=== PATIENT | male | born 1995 | race Caucasian/White ===

== ENCOUNTER 2016-11-24 19:03 | Emergency (ER) | payer OTHER ==
[2016-11-24] MEDS ORDERED: ONDANSETRON 4MG/2ML VIAL (J2405) As Ordered ONE (22:36)
[2016-11-24] MEDS ORDERED: PANTOPRAZOLE 40MG INJ (PROTONIX) (C9113) As Ordered ONE (22:36)
[2016-11-24 22:52] LABS: BASO % 0.4 % (0.0-1.0); EOS # 0.3 K/mm3 (0.0-0.50); EOS % 3.2 % (0.0-3.0); LARGE UNSTAINED CELL # 0.1 K/mm3 (0.0-0.4); LYMPH # 0.8 K/mm3 (1.5-6.5); LYMPH % 9.4 % (24.0-44.0); MEAN CORPUSCULAR HEMOGLOBIN 29.7 pg (27.0-33.0); MEAN CORPUSCULAR VOLUME 87.3 fl (80.0-96.0); MONO # 0.4 K/mm3 (0.0-0.8); MONO % 4.5 % (0.0-5.0); NEUTROPHILS # 6.7 K/mm3 (1.8-7.7); NEUTROPHILS % 81.5 % (36.0-66.0); PLATELET COUNT, AUTOMATED 149 k/mm3 (150-450); RED CELL DISTRIBUTION WIDTH 12.7 % (11.5-14.5); WHITE BLOOD COUNT 8.2 K/mm3 (4.0-10.0)
[2016-11-24 23:32] LABS: ALBUMIN 4.1 GM/DL (3.2-5.2); ALBUMIN/GLOBULIN RATIO 1.52 (1.00-1.93); ALKALINE PHOSPHATASE 68 U/L (45-117); ALT/SGPT 33 U/L (12-78); AMYLASE 43 U/L (25-115); ANION GAP 7 MEQ/L (8-16); AST/SGOT 27 U/L (15-37); BILIRUBIN,DIRECT 0.2 MG/DL (0.0-0.2); BILIRUBIN,TOTAL 0.9 MG/DL (0.2-1.0); BLOOD UREA NITROGEN 17 MG/DL (7-18); CALCIUM LEVEL 8.4 MG/DL (8.5-10.1); CARBON DIOXIDE LEVEL 29 MEQ/L (21-32); CHLORIDE LEVEL 105 MEQ/L (98-107); CREATININE FOR GFR 1.18 MG/DL (0.70-1.30); GLOMERULAR FILTRATION RATE > 60.0 (>60); GLUCOSE, FASTING 92 MG/DL (70-105); POTASSIUM SERUM 4.1 MEQ/L (3.5-5.1); SODIUM LEVEL 141 MEQ/L (136-145); TOTAL PROTEIN 6.8 GM/DL (6.4-8.2)
--- NOTE | 2016-11-25 00:28 | EDDOCDS ---
Nurse's Notes [facility] Name: Uli Mari Age: 21 yrs Sex: Male : 1995 Arrival Date: 11/24/2016 Time: 19:03 Bed I2 / M2 Private MD: Lucian - Complete Info On Cds Diagnosis: Nausea and vomiting;Diarrhea, unspecified Presentation: 11/24 19:18 Presenting complaint: Patient states: he has had N/V/D since 1500 today pt returned cz from [place] emergency department yesterday. Adult Sepsis Screening: The patient does not have new or worsening altered mentation. Patient's respiratory rate is less than 22. Systolic blood pressure is greater than 100. Patient has a qSOFA score of 0- Negative Sepsis Screen. Suicide/Homicide risk assessment- the patient denies having any suicidal and/or homicidal ideations and does not present with any other emotional, behavioral or mental health complaints. 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 Transition of care: patient was not received from another setting of care. 19:18 Acuity: NAEEM Level 4 cz 19:18 Method Of Arrival: Walkin/Carried/Asstd cz 22:32 Acuity level changed due to complexity of care. dsf 22:32 Acuity: NAEEM Level 3 dsf Triage Assessment: 19:20 General: Appears in no apparent distress. Pain: Location: abdomen Pain currently is 7 cz out of 10 on a pain scale. Pt Declines HIV testing. Historical: - Allergies: No known drug Allergies; - Home Meds: 1. none - PMHx: none; - PSHx: none; - Social history: Smoking status: Patient uses tobacco products, light tobacco smoker. No barriers to communication noted, The patient speaks fluent Maori, Speaks appropriately for age. - Family history: Not pertinent. - : The pt / caregiver states he / she is not on anticoagulants. Home medication list is obtained from the patient. - Exposure Risk Screening:: None identified. Screenin:29 Screening information is obtained from the patient. Fall risk: No risks identified. lf1 Assistance ADL's: requires no assistance with activities of daily living. Abuse/DV Screen: The patient / caregiver reports he/she is: not in a situation that causes fear, pain or injury. Nutritional screening: No deficits noted. Advance Directives: Currently, there is no health care proxy. home support is adequate. Assessment: 21:29 General: Appears comfortable, Behavior is cooperative. Pain: Denies pain. Neurological: lf1 Level of Consciousness is awake, alert, Oriented to person, place, time. EENT: No deficits noted. Cardiovascular: Chest pain is denied. Respiratory: Respiratory effort is even, unlabored. GI: Reports vomiting, intolerance of fluids. : Reports inability to void since 1500. Derm: Skin is normal. 22:43 General: Appears uncomfortable, Behavior is appropriate for age, cooperative. Pain: dsf Location: right upper quadrant and left upper quadrant Pain currently is 8 out of 10 on a pain scale. Quality of pain is described as sharp. Neurological: Level of Consciousness is awake, alert. Cardiovascular: Capillary refill < 3 seconds Heart tones S1 S2 present. Respiratory: Airway is patent Respiratory effort is even, unlabored, Respiratory pattern is regular, symmetrical, Breath sounds are clear bilaterally. GI: Abdomen is flat, Bowel sounds present X 4 quads. Abd is soft X 4 quads Abd is tender to palpation in right upper quadrant and left upper quadrant. Derm: Skin is pink, warm & dry. 23:30 General: Appears in no apparent distress, comfortable, Behavior is appropriate for age, dsf cooperative. Pain: Denies pain. Neurological: Level of Consciousness is awake, alert. Cardiovascular: No deficits noted. Respiratory: No deficits noted. Derm: Skin is pink, warm & dry. 11/25 00:25 General: pt drank 1 sip of sprite. pt denies vomiting but does report still nausea. dsf Misty PA notified . 00:27 General: Appears in no apparent distress, Behavior is appropriate for age, cooperative. dsf Pain: Denies pain. Neurological: Level of Consciousness is awake, alert. Cardiovascular: No deficits noted. Respiratory: No deficits noted. GI: Reports nausea, Denies vomiting, pain. Derm: Skin is pink, warm & dry. Vital Signs: 11/24 19:04 BP 108 / 72; Pulse 102; Resp 18 S; Temp 98.7(O); Pulse Ox 97% on R/A; Weight 86.18 kg gr2 (R); Height 5 ft. 8 in. (172.72 cm) (R); Pain 7/10; 23:29 BP 103 / 55; Pulse 68; Resp 20; Temp 98.7(T); Pulse Ox 100% on R/A; Pain 0/10; dsf 19:04 Body Mass Index 28.89 (86.18 kg, 172.72 cm) gr2 Vitals: 19:04 Log In Time: November 24, 2016 at 19:04. gr2 ED Course: 19:04 Patient visited by Bismark Robin. gr2 19:04 Other - Complete Info On Cds is Private Physician. gr2 19:04 Patient moved to Waiting gr2 19:05 Patient visited by Bismark Robin. gr2 19:05 Patient moved to Pre RCE gr2 19:20 Triage Initiated cz 21:27 Patient moved to Triage 1 ar3 22:03 [facility]C [facility] ck7 22:03 Ochoa Frye MD is Attending Physician. ck7 22:09 Patient visited by Corey Jay RPA-C. ck7 22:31 Patient moved to I2 / M2 mb9 22:43 Amylase Sent. dsf 22:43 Basic Metabolic Profile Sent. dsf 22:43 CBC with Diff Sent. dsf 22:43 Lipase Sent. dsf 22:43 Liver Profile Sent. dsf 22:44 Inserted saline lock: 18 gauge in right antecubital area The patient tolerated the dsf procedure well. 22:45 Patient visited by Marylu Moore,ONI. dsf 23:30 Patient visited by Marylu Moore,ONI. dsf 11/25 00:09 Patient visited by Corey Jay RPA-C. ck7 00:22 Victoriano Stone [facility] is Referral Physician. ck7 00:26 The patient / caregiver is instructed regarding the plan of care and ED course. dsf 00:26 No procedures done that require assistance. dsf 00:26 Discontinued lock intact, bleeding controlled, pressure dressing applied, No dsf redness/swelling at site. Administered Medications: 11/24 22:44 Drug: Ondansetron 4 mg [ondansetron HCl 2 mg/mL intravenous solution (2 mL)] Route: dsf IVP; Site: right antecubital; 23:59 Follow up: Response: Nausea is decreased; No Adverse Reaction ead 22:44 Drug: pantoprazole 40 mg [pantoprazole 40 mg intravenous solution] Route: IV; Rate: dsf bolus; Site: right antecubital; 23:15 Follow up: Response: Nausea is decreased; No Adverse Reaction; IV Status: Completed ead infusion 22:45 Drug: NS 0.9% 1000 ml [sodium chloride 0.9 % injection solution] Route: IV; Rate: dsf bolus; Site: right antecubital; 23:59 Follow up: IV Status: Completed infusion; IV Intake: 1000ml ead Intake: 23:59 IV: 1000.00ml; Total: 1000.00ml. ead Order Results: Lab Order: Amylase; SPEC'11/24/16 22:41 Test: AMYLASE; Value: 43; Range: 25-115; Units: U/L; Status: F Lab Order: Basic Metabolic Profile; SPEC11/24/16 22:41 Test: GLUCOSE, FASTING; Value: 92; Range: 70-105; Units: MG/DL; Status: F Test: BLOOD UREA NITROGEN; Value: 17; Range: 7-18; Units: MG/DL; Status: F Test: CREATININE FOR GFR; Value: 1.18; Range: 0.70-1.30; Units: MG/DL; Status: F Test: GLOMERULAR FILTRATION RATE; Value: > 60.0; Range: >60; Status: F Test: SODIUM LEVEL; Value: 141; Range: 136-145; Units: MEQ/L; Status: F Test: POTASSIUM SERUM; Value: 4.1; Range: 3.5-5.1; Units: MEQ/L; Status: F Test: CHLORIDE LEVEL; Value: 105; Range: 98-107; Units: MEQ/L; Status: F Test: CARBON DIOXIDE LEVEL; Value: 29; Range: 21-32; Units: MEQ/L; Status: F Test: ANION GAP; Value: 7; Range: 8-16; Abnormal: Below low normal; Units: MEQ/L; Status: F Test: CALCIUM LEVEL; Value: 8.4; Range: 8.5-10.1; Abnormal: Below low normal; Units: MG/DL; Status: F Test Note: ; Units are mL/min/1.73 m2 Chronic Kidney Disease Staging per NKF: Stage I & II GFR >=60 Normal to Mildly Decreased Stage III GFR 30-59 Moderately Decreased Stage IV GFR 15-29 Severely Decreased Stage V GFR <15 Very Little GFR Left ESRD GFR <15 on [facility] Lab Order: CBC with Diff; BLANCA'Kt 11/24/16 22:41 Test: WHITE BLOOD COUNT; Value: 8.2; Range: 4.0-10.0; Units: K/mm3; Status: F Test: RED BLOOD COUNT; Value: 5.58; Range: 4.30-6.10; Units: M/mm3; Status: F Test: HEMOGLOBIN; Value: 16.6; Range: 14.0-18.0; Units: g/dl; Status: F Test: HEMATOCRIT; Value: 48.8; Range: 42.0-52.0; Units: %; Status: F Test: MEAN CORPUSCULAR VOLUME; Value: 87.3; Range: 80.0-96.0; Units: fl; Status: F Test: MEAN CORPUSCULAR HEMOGLOBIN; Value: 29.7; Range: 27.0-33.0; Units: pg; Status: F Test: MEAN CORPUSCULAR HGB CONC; Value: 34.0; Range: 32.0-36.5; Units: g/dl; Status: F Test: RED CELL DISTRIBUTION WIDTH; Value: 12.7; Range: 11.5-14.5; Units: %; Status: F Test: PLATELET COUNT, AUTOMATED; Value: 149; Range: 150-450; Abnormal: Below low normal; Units: k/mm3; Status: F Test: NEUTROPHILS %; Value: 81.5; Range: 36.0-66.0; Abnormal: Above high normal; Units: %; Status: F Test: LYMPH %; Value: 9.4; Range: 24.0-44.0; Abnormal: Below low normal; Units: %; Status: F Test: MONO %; Value: 4.5; Range: 0.0-5.0; Units: %; Status: F Test: EOS %; Value: 3.2; Range: 0.0-3.0; Abnormal: Above high normal; Units: %; Status: F Test: BASO %; Value: 0.4; Range: 0.0-1.0; Units: %; Status: F Test: LARGE UNSTAINED CELL %; Value: 1.0; Range: 0.0-4.0; Units: %; Status: F Test: NEUTROPHILS #; Value: 6.7; Range: 1.8-7.7; Units: K/mm3; Status: F Test: LYMPH #; Value: 0.8; Range: 1.5-6.5; Abnormal: Below low normal; Units: K/mm3; Status: F Test: MONO #; Value: 0.4; Range: 0.0-0.8; Units: K/mm3; Status: F Test: EOS #; Value: 0.3; Range: 0.0-0.50; Units: K/mm3; Status: F Test: BASO #; Value: 0.0; Range: 0.0-0.2; Units: K/mm3; Status: F Test: LARGE UNSTAINED CELL #; Value: 0.1; Range: 0.0-0.4; Units: K/mm3; Status: F Lab Order: Lipase; SPEC' 11/24/16 22:41 Test: LIPASE; Value: 168; Range: 73-393; Units: U/L; Status: F Lab Order: Liver Profile; SPEC' 11/24/16 22:41 Test: AST/SGOT; Value: 27; Range: 15-37; Units: U/L; Status: F Test: ALT/SGPT; Value: 33; Range: 12-78; Units: U/L; Status: F Test: ALKALINE PHOSPHATASE; Value: 68; Range: 45-117; Units: U/L; Status: F Test: BILIRUBIN,TOTAL; Value: 0.9; Range: 0.2-1.0; Units: MG/DL; Status: F Test: BILIRUBIN,DIRECT; Value: 0.2; Range: 0.0-0.2; Units: MG/DL; Status: F Test: TOTAL PROTEIN; Value: 6.8; Range: 6.4-8.2; Units: GM/DL; Status: F Test: ALBUMIN; Value: 4.1; Range: 3.2-5.2; Units: GM/DL; Status: F Test: ALBUMIN/GLOBULIN RATIO; Value: 1.52; Range: 1.00-1.93; Status: F Outcome: 11/25 00:23 Discharge ordered by Provider. ck7 00:26 No special radiology studies were completed. dsf 00:26 Discharge Assessment: Patient awake, alert and oriented x 3. No cognitive and/or dsf functional deficits noted. Patient verbalized understanding of disposition instructions. patient administered narcotics - no. The following High Risk Discharge criteria are identified: None. Discharged to home ambulatory. Condition: stable. Discharge instructions given to patient, Instructed on discharge instructions, follow up and referral plans. diet, Demonstrated understanding of instructions, medications, Pt was receptive of discharge instructions/ teaching. Prescriptions given X 2. Property sent home with patient. 00:27 Patient left the ED. dsf Signatures: Paul Venegas, RN RN cz Mimi Bolivar,RN RN lf1 Dottie Campbell, TWITCHELL OPERATOR TWITCHELL OPERATOR ar3 Marylu MooreRN RN dsf Corey Jay, RPA-C RPA-Cck7 Bismark Robin Emily,RN RN Guillermo Wang,RN RN mb9 KUN
--- NOTE | 2016-11-25 00:28 | EDDOCDS ---
Physician Documentation [facility] Name: Uli Mari Age: 21 yrs Sex: Male : 1995 Arrival Date: 11/24/2016 Time: 19:03 Bed I2 / M2 Private MD: Lucian - Complete Info On Cds Disposition: 11/25/16 00:23 Discharged to Home/Self Care. Impression: Nausea and vomiting, Diarrhea, unspecified. - Condition is Stable. - Discharge Instructions: Diarrhea, Nausea and Vomiting. - Prescriptions for Prilosec 20 mg Oral Capsule - take 1 capsule by ORAL route once daily; 10 capsule. ZOFRAN ODT 4 mg - dissolve 1 tablet by ORAL route 4 times per day As needed do not chew, do not swallow whole; 10 tablet. - Medication Reconciliation, Local Pharmacy Hours form. - Follow up: Victoraino Stone [facility]; When: Tomorrow; Reason: Recheck today's complaints, Continuance of care. - Problem is new. - Symptoms have improved. - Notes: FOLLOW UP WITH SICK CALL IN THE MORNING Historical: - Allergies: No known drug Allergies; - Home Meds: 1. none - PMHx: none; - PSHx: none; - Social history: Smoking status: Patient uses tobacco products, light tobacco smoker. No barriers to communication noted, The patient speaks fluent Swedish, Speaks appropriately for age. - Family history: Not pertinent. - : The pt / caregiver states he / she is not on anticoagulants. Home medication list is obtained from the patient. - Exposure Risk Screening:: None identified. Vital Signs: 11/24 19:04 BP 108 / 72; Pulse 102; Resp 18 S; Temp 98.7(O); Pulse Ox 97% on R/A; Weight 86.18 kg / gr2 189.99 lbs (R); Height 5 ft. 8 in. (172.72 cm) (R); Pain 7/10; 23:29 BP 103 / 55; Pulse 68; Resp 20; Temp 98.7(T); Pulse Ox 100% on R/A; Pain 0/10; dsf 19:04 Body Mass Index 28.89 (86.18 kg, 172.72 cm) gr2 MDM: 22:32 Undress patient appropriately for examination ordered. ck7 22:32 IV Saline Lock ordered. ck7 22:32 NS 0.9% 1000 ml IV at bolus once ordered. ck7 22:32 Ondansetron 4 mg IVP once ordered. ck7 22:32 pantoprazole 40 mg IV at bolus once ordered. ck7 22:33 Amylase Ordered. EDMS 22:33 Basic Metabolic Profile Ordered. EDMS 22:33 CBC with Diff Ordered. EDMS 22:33 Lipase Ordered. EDMS 22:33 Liver Profile Ordered. EDMS 22:33 NOTHING BY MOUTH+DIET ordered. EDMS 23:42 Financial registration complete. lja 11/25 00:09 Basic Metabolic Profile Reviewed. ck7 00:09 CBC with Diff Reviewed. ck7 00:09 Amylase Reviewed. ck7 00:09 Lipase Reviewed. ck7 00:09 Liver Profile Reviewed. ck7 00:11 Fluid Challenge ordered. ck7 Administered Medications: 11/24 22:44 Drug: Ondansetron 4 mg [ondansetron HCl 2 mg/mL intravenous solution (2 mL)] Route: dsf IVP; Site: right antecubital; 23:59 Follow up: Response: Nausea is decreased; No Adverse Reaction ead 22:44 Drug: pantoprazole 40 mg [pantoprazole 40 mg intravenous solution] Route: IV; Rate: dsf bolus; Site: right antecubital; 23:15 Follow up: Response: Nausea is decreased; No Adverse Reaction; IV Status: Completed ead infusion 22:45 Drug: NS 0.9% 1000 ml [sodium chloride 0.9 % injection solution] Route: IV; Rate: dsf bolus; Site: right antecubital; 23:59 Follow up: IV Status: Completed infusion; IV Intake: 1000ml ead Signatures: Dispatcher [employer] EDMS Paul Venegas, RN Mimi LongRN RN lf1 Marylu MooreRN RN dsf Corey Jay, RPA-C RPA-Cck7 Arel, Sheyla Martínez RN The chart was reviewed and I authenticate all verbal orders and agree with the evaluation and treatment provided.Corrections: (The following items were deleted from the chart) 11/25 00:13 11/24 22:33 URINALYSIS+LAB ordered. EDMS EDMS 11/25 00:14 11/24 22:33 URINE CULTURE+NAYELI ordered. EDMS EDMS MTDD
--- NOTE | 2016-11-27 01:28 | EDDOCDS ---
Physician Documentation [facility] Name: Uli Mari Age: 21 yrs Sex: Male : 1995 Arrival Date: 11/24/2016 Time: 19:03 Bed I2 / M2 Private MD: Lucian - Complete Info On Cds Disposition: 11/25/16 00:23 Discharged to Home/Self Care. Impression: Nausea and vomiting, Diarrhea, unspecified. - Condition is Stable. - Discharge Instructions: Diarrhea, Nausea and Vomiting. - Prescriptions for Prilosec 20 mg Oral Capsule - take 1 capsule by ORAL route once daily; 10 capsule. ZOFRAN ODT 4 mg - dissolve 1 tablet by ORAL route 4 times per day As needed do not chew, do not swallow whole; 10 tablet. - Medication Reconciliation, Local Pharmacy Hours form. - Follow up: Victoriano Stone [facility]; When: Tomorrow; Reason: Recheck today's complaints, Continuance of care. - Problem is new. - Symptoms have improved. - Notes: FOLLOW UP WITH SICK CALL IN THE MORNING Historical: - Allergies: No known drug Allergies; - Home Meds: 1. none - PMHx: none; - PSHx: none; - Social history: Smoking status: Patient uses tobacco products, light tobacco smoker. No barriers to communication noted, The patient speaks fluent Italian, Speaks appropriately for age. - Family history: Not pertinent. - : The pt / caregiver states he / she is not on anticoagulants. Home medication list is obtained from the patient. - Exposure Risk Screening:: None identified. Vital Signs: 11/24 19:04 BP 108 / 72; Pulse 102; Resp 18 S; Temp 98.7(O); Pulse Ox 97% on R/A; Weight 86.18 kg / gr2 189.99 lbs (R); Height 5 ft. 8 in. (172.72 cm) (R); Pain 7/10; 23:29 BP 103 / 55; Pulse 68; Resp 20; Temp 98.7(T); Pulse Ox 100% on R/A; Pain 0/10; dsf 19:04 Body Mass Index 28.89 (86.18 kg, 172.72 cm) gr2 MDM: 22:32 Undress patient appropriately for examination ordered. ck7 22:32 IV Saline Lock ordered. ck7 22:32 NS 0.9% 1000 ml IV at bolus once ordered. ck7 22:32 Ondansetron 4 mg IVP once ordered. ck7 22:32 pantoprazole 40 mg IV at bolus once ordered. ck7 22:33 Amylase Ordered. EDMS 22:33 Basic Metabolic Profile Ordered. EDMS 22:33 CBC with Diff Ordered. EDMS 22:33 Lipase Ordered. EDMS 22:33 Liver Profile Ordered. EDMS 22:33 NOTHING BY MOUTH+DIET ordered. EDMS 23:42 Financial registration complete. [facility] 11/25 00:09 Basic Metabolic Profile Reviewed. ck7 00:09 CBC with Diff Reviewed. ck7 00:09 Amylase Reviewed. ck7 00:09 Lipase Reviewed. ck7 00:09 Liver Profile Reviewed. ck7 00:11 Fluid Challenge ordered. ck7 00:43 [facility] Payment Agreement was scanned into [employer] and attached to record. : T-Sheet-- Draft Copy was scanned into [employer] and attached to record. gb Administered Medications: 11/24 22:44 Drug: Ondansetron 4 mg [ondansetron HCl 2 mg/mL intravenous solution (2 mL)] Route: dsf IVP; Site: right antecubital; 23:59 Follow up: Response: Nausea is decreased; No Adverse Reaction ead 22:44 Drug: pantoprazole 40 mg [pantoprazole 40 mg intravenous solution] Route: IV; Rate: dsf bolus; Site: right antecubital; 23:15 Follow up: Response: Nausea is decreased; No Adverse Reaction; IV Status: Completed ead infusion 22:45 Drug: NS 0.9% 1000 ml [sodium chloride 0.9 % injection solution] Route: IV; Rate: dsf bolus; Site: right antecubital; 23:59 Follow up: IV Status: Completed infusion; IV Intake: 1000ml ead Signatures: Dispatcher [employer] EDMS Paul Venegas, RN Nikky Doll, Bismark Reg Mimi PazRN ONI lf1 Marylu MooreRN RN anibalf Corey Jay RPA-C RPA-Cck7 Arel, Sheyla Martínez RN The chart was reviewed and I authenticate all verbal orders and agree with the evaluation and treatment provided.Corrections: (The following items were deleted from the chart) 11/25 00:13 11/24 22:33 URINALYSIS+LAB ordered. EDMS EDMS 11/25 00:14 11/24 22:33 URINE CULTURE+NAYELI ordered. EDMS EDMS : 11/25 00:43 [facility] Payment Agreement lja 12:04 T-Sheet-- Draft Copy gb Chart Complete MTDD
--- NOTE | 2016-11-27 01:28 | EDDOCDS ---
Physician Documentation [facility] Name: Uli Mari Age: 21 yrs Sex: Male : 1995 Arrival Date: 11/24/2016 Time: 19:03 Bed I2 / M2 Private MD: Lucian - Complete Info On Cds Disposition: 11/25/16 00:23 Discharged to Home/Self Care. Impression: Nausea and vomiting, Diarrhea, unspecified. - Condition is Stable. - Discharge Instructions: Diarrhea, Nausea and Vomiting. - Prescriptions for Prilosec 20 mg Oral Capsule - take 1 capsule by ORAL route once daily; 10 capsule. ZOFRAN ODT 4 mg - dissolve 1 tablet by ORAL route 4 times per day As needed do not chew, do not swallow whole; 10 tablet. - Medication Reconciliation, Local Pharmacy Hours form. - Follow up: Victoriano Stone [facility]; When: Tomorrow; Reason: Recheck today's complaints, Continuance of care. - Problem is new. - Symptoms have improved. - Notes: FOLLOW UP WITH SICK CALL IN THE MORNING Historical: - Allergies: No known drug Allergies; - Home Meds: 1. none - PMHx: none; - PSHx: none; - Social history: Smoking status: Patient uses tobacco products, light tobacco smoker. No barriers to communication noted, The patient speaks fluent Japanese, Speaks appropriately for age. - Family history: Not pertinent. - : The pt / caregiver states he / she is not on anticoagulants. Home medication list is obtained from the patient. - Exposure Risk Screening:: None identified. Vital Signs: 11/24 19:04 BP 108 / 72; Pulse 102; Resp 18 S; Temp 98.7(O); Pulse Ox 97% on R/A; Weight 86.18 kg / gr2 189.99 lbs (R); Height 5 ft. 8 in. (172.72 cm) (R); Pain 7/10; 23:29 BP 103 / 55; Pulse 68; Resp 20; Temp 98.7(T); Pulse Ox 100% on R/A; Pain 0/10; dsf 19:04 Body Mass Index 28.89 (86.18 kg, 172.72 cm) gr2 MDM: 22:32 Undress patient appropriately for examination ordered. ck7 22:32 IV Saline Lock ordered. ck7 22:32 NS 0.9% 1000 ml IV at bolus once ordered. ck7 22:32 Ondansetron 4 mg IVP once ordered. ck7 22:32 pantoprazole 40 mg IV at bolus once ordered. ck7 22:33 Amylase Ordered. EDMS 22:33 Basic Metabolic Profile Ordered. EDMS 22:33 CBC with Diff Ordered. EDMS 22:33 Lipase Ordered. EDMS 22:33 Liver Profile Ordered. EDMS 22:33 NOTHING BY MOUTH+DIET ordered. EDMS 23:42 Financial registration complete. [facility] 11/25 00:09 Basic Metabolic Profile Reviewed. ck7 00:09 CBC with Diff Reviewed. ck7 00:09 Amylase Reviewed. ck7 00:09 Lipase Reviewed. ck7 00:09 Liver Profile Reviewed. ck7 00:11 Fluid Challenge ordered. ck7 00:43 [facility] Payment Agreement was scanned into [employer] and attached to record. : T-Sheet-- Draft Copy was scanned into [employer] and attached to record. gb Administered Medications: 11/24 22:44 Drug: Ondansetron 4 mg [ondansetron HCl 2 mg/mL intravenous solution (2 mL)] Route: dsf IVP; Site: right antecubital; 23:59 Follow up: Response: Nausea is decreased; No Adverse Reaction ead 22:44 Drug: pantoprazole 40 mg [pantoprazole 40 mg intravenous solution] Route: IV; Rate: dsf bolus; Site: right antecubital; 23:15 Follow up: Response: Nausea is decreased; No Adverse Reaction; IV Status: Completed ead infusion 22:45 Drug: NS 0.9% 1000 ml [sodium chloride 0.9 % injection solution] Route: IV; Rate: dsf bolus; Site: right antecubital; 23:59 Follow up: IV Status: Completed infusion; IV Intake: 1000ml ead Signatures: Dispatcher [employer] EDMS Paul Venegas, RN Nikky Doll, Bismark Reg Mimi PazRN ONI lf1 Marylu MooreRN RN anibalf Corey Jay RPA-C RPA-Cck7 Arel, Sheyla Martínez RN The chart was reviewed and I authenticate all verbal orders and agree with the evaluation and treatment provided.Corrections: (The following items were deleted from the chart) 11/25 00:13 11/24 22:33 URINALYSIS+LAB ordered. EDMS EDMS 11/25 00:14 11/24 22:33 URINE CULTURE+NAYELI ordered. EDMS EDMS : 11/25 00:43 [facility] Payment Agreement lja 12:04 T-Sheet-- Draft Copy gb Chart Complete MTDD
--- NOTE | 2016-11-27 01:28 | EDDOCDS ---
Nurse's Notes [facility], [place] Name: Uli Mari Age: 21 yrs Sex: Male : 1995 Arrival Date: 11/24/2016 Time: 19:03 Bed I2 / M2 Private MD: Lucian - Complete Info On Cds Diagnosis: Nausea and vomiting;Diarrhea, unspecified Presentation: 11/24 19:18 Presenting complaint: Patient states: he has had N/V/D since 1500 today pt returned cz from [facility] yesterday. Adult Sepsis Screening: The patient does not have new or worsening altered mentation. Patient's respiratory rate is less than 22. Systolic blood pressure is greater than 100. Patient has a qSOFA score of 0- Negative Sepsis Screen. Suicide/Homicide risk assessment- the patient denies having any suicidal and/or homicidal ideations and does not present with any other emotional, behavioral or mental health complaints. Status: The patient is an active duty farm equipment service technician. Transition of care: patient was not received from another setting of care. 19:18 Acuity: NAEEM Level 4 cz 19:18 Method Of Arrival: Walkin/Carried/Asstd cz 22:32 Acuity level changed due to complexity of care. dsf 22:32 Acuity: NAEEM Level 3 dsf Triage Assessment: 19:20 General: Appears in no apparent distress. Pain: Location: abdomen Pain currently is 7 cz out of 10 on a pain scale. Pt Declines HIV testing. Historical: - Allergies: No known drug Allergies; - Home Meds: 1. none - PMHx: none; - PSHx: none; - Social history: Smoking status: Patient uses tobacco products, light tobacco smoker. No barriers to communication noted, The patient speaks fluent Hungarian, Speaks appropriately for age. - Family history: Not pertinent. - : The pt / caregiver states he / she is not on anticoagulants. Home medication list is obtained from the patient. - Exposure Risk Screening:: None identified. Screenin:29 Screening information is obtained from the patient. Fall risk: No risks identified. lf1 Assistance ADL's: requires no assistance with activities of daily living. Abuse/DV Screen: The patient / caregiver reports he/she is: not in a situation that causes fear, pain or injury. Nutritional screening: No deficits noted. Advance Directives: Currently, there is no health care proxy. home support is adequate. Assessment: 21:29 General: Appears comfortable, Behavior is cooperative. Pain: Denies pain. Neurological: lf1 Level of Consciousness is awake, alert, Oriented to person, place, time. EENT: No deficits noted. Cardiovascular: Chest pain is denied. Respiratory: Respiratory effort is even, unlabored. GI: Reports vomiting, intolerance of fluids. : Reports inability to void since 1500. Derm: Skin is normal. 22:43 General: Appears uncomfortable, Behavior is appropriate for age, cooperative. Pain: dsf Location: right upper quadrant and left upper quadrant Pain currently is 8 out of 10 on a pain scale. Quality of pain is described as sharp. Neurological: Level of Consciousness is awake, alert. Cardiovascular: Capillary refill < 3 seconds Heart tones S1 S2 present. Respiratory: Airway is patent Respiratory effort is even, unlabored, Respiratory pattern is regular, symmetrical, Breath sounds are clear bilaterally. GI: Abdomen is flat, Bowel sounds present X 4 quads. Abd is soft X 4 quads Abd is tender to palpation in right upper quadrant and left upper quadrant. Derm: Skin is pink, warm & dry. 23:30 General: Appears in no apparent distress, comfortable, Behavior is appropriate for age, dsf cooperative. Pain: Denies pain. Neurological: Level of Consciousness is awake, alert. Cardiovascular: No deficits noted. Respiratory: No deficits noted. Derm: Skin is pink, warm & dry. 11/25 00:25 General: pt drank 1 sip of sprite. pt denies vomiting but does report still nausea. dsf Misty PA notified . 00:27 General: Appears in no apparent distress, Behavior is appropriate for age, cooperative. dsf Pain: Denies pain. Neurological: Level of Consciousness is awake, alert. Cardiovascular: No deficits noted. Respiratory: No deficits noted. GI: Reports nausea, Denies vomiting, pain. Derm: Skin is pink, warm & dry. Vital Signs: 11/24 19:04 BP 108 / 72; Pulse 102; Resp 18 S; Temp 98.7(O); Pulse Ox 97% on R/A; Weight 86.18 kg gr2 (R); Height 5 ft. 8 in. (172.72 cm) (R); Pain 7/10; 23:29 BP 103 / 55; Pulse 68; Resp 20; Temp 98.7(T); Pulse Ox 100% on R/A; Pain 0/10; dsf 19:04 Body Mass Index 28.89 (86.18 kg, 172.72 cm) gr2 Vitals: 19:04 Log In Time: November 24, 2016 at 19:04. gr2 ED Course: 19:04 Patient visited by Bismark Robin. gr2 19:04 Other - Complete Info On Cds is Private Physician. gr2 19:04 Patient moved to Waiting gr2 19:05 Patient visited by Bismark Robin. gr2 19:05 Patient moved to Pre RCE gr2 19:20 Triage Initiated cz 21:27 Patient moved to Triage 1 ar3 22:03 Corey Jay RPA-C is PHCP. ck7 22:03 Ochoa Frye MD is Attending Physician. ck7 22:09 Patient visited by Corey Jay RPA-C. ck7 22:31 Patient moved to I2 / M2 mb9 22:43 Amylase Sent. dsf 22:43 Basic Metabolic Profile Sent. dsf 22:43 CBC with Diff Sent. dsf 22:43 Lipase Sent. dsf 22:43 Liver Profile Sent. dsf 22:44 Inserted saline lock: 18 gauge in right antecubital area The patient tolerated the dsf procedure well. 22:45 Patient visited by Marylu Moore,ONI. dsf 23:30 Patient visited by Marylu Moore,ONI. dsf 11/25 00:09 Patient visited by Corey Jay RPA-C. ck7 00:22 [facility] is Referral Physician. ck7 00:26 The patient / caregiver is instructed regarding the plan of care and ED course. dsf 00:26 No procedures done that require assistance. dsf 00:26 Discontinued lock intact, bleeding controlled, pressure dressing applied, No dsf redness/swelling at site. 00:43 [facility] [place] Payment Agreement was scanned into [email or web address] and attached to record. lja 00:44 Patient name changed from Uli\S\C\S\Mari\S\ to Uli\S\Colie\S\Mari. EDMS 12:04 T-Sheet-- Draft Copy was scanned into [email or web address] and attached to record. gb Administered Medications: 11/24 22:44 Drug: Ondansetron 4 mg [ondansetron HCl 2 mg/mL intravenous solution (2 mL)] Route: dsf IVP; Site: right antecubital; 23:59 Follow up: Response: Nausea is decreased; No Adverse Reaction ead 22:44 Drug: pantoprazole 40 mg [pantoprazole 40 mg intravenous solution] Route: IV; Rate: dsf bolus; Site: right antecubital; 23:15 Follow up: Response: Nausea is decreased; No Adverse Reaction; IV Status: Completed ead infusion 22:45 Drug: NS 0.9% 1000 ml [sodium chloride 0.9 % injection solution] Route: IV; Rate: dsf bolus; Site: right antecubital; 23:59 Follow up: IV Status: Completed infusion; IV Intake: 1000ml ead Intake: 23:59 IV: 1000.00ml; Total: 1000.00ml. ead Order Results: Lab Order: Amylase; SPEC'M 11/24/16 22:41 Test: AMYLASE; Value: 43; Range: 25-115; Units: U/L; Status: F Lab Order: Basic Metabolic Profile; SPEC'M 11/24/16 22:41 Test: GLUCOSE, FASTING; Value: 92; Range: 70-105; Units: MG/DL; Status: F Test: BLOOD UREA NITROGEN; Value: 17; Range: 7-18; Units: MG/DL; Status: F Test: CREATININE FOR GFR; Value: 1.18; Range: 0.70-1.30; Units: MG/DL; Status: F Test: GLOMERULAR FILTRATION RATE; Value: > 60.0; Range: >60; Status: F Test: SODIUM LEVEL; Value: 141; Range: 136-145; Units: MEQ/L; Status: F Test: POTASSIUM SERUM; Value: 4.1; Range: 3.5-5.1; Units: MEQ/L; Status: F Test: CHLORIDE LEVEL; Value: 105; Range: 98-107; Units: MEQ/L; Status: F Test: CARBON DIOXIDE LEVEL; Value: 29; Range: 21-32; Units: MEQ/L; Status: F Test: ANION GAP; Value: 7; Range: 8-16; Abnormal: Below low normal; Units: MEQ/L; Status: F Test: CALCIUM LEVEL; Value: 8.4; Range: 8.5-10.1; Abnormal: Below low normal; Units: MG/DL; Status: F Test Note: ; Units are mL/min/1.73 m2 Chronic Kidney Disease Staging per NKF: Stage I & II GFR >=60 Normal to Mildly Decreased Stage III GFR 30-59 Moderately Decreased Stage IV GFR 15-29 Severely Decreased Stage V GFR <15 Very Little GFR Left ESRD GFR <15 on CANE PILER Lab Order: CBC with Diff; SPEC'M 11/24/16 22:41 Test: WHITE BLOOD COUNT; Value: 8.2; Range: 4.0-10.0; Units: K/mm3; Status: F Test: RED BLOOD COUNT; Value: 5.58; Range: 4.30-6.10; Units: M/mm3; Status: F Test: HEMOGLOBIN; Value: 16.6; Range: 14.0-18.0; Units: g/dl; Status: F Test: HEMATOCRIT; Value: 48.8; Range: 42.0-52.0; Units: %; Status: F Test: MEAN CORPUSCULAR VOLUME; Value: 87.3; Range: 80.0-96.0; Units: fl; Status: F Test: MEAN CORPUSCULAR HEMOGLOBIN; Value: 29.7; Range: 27.0-33.0; Units: pg; Status: F Test: MEAN CORPUSCULAR HGB CONC; Value: 34.0; Range: 32.0-36.5; Units: g/dl; Status: F Test: RED CELL DISTRIBUTION WIDTH; Value: 12.7; Range: 11.5-14.5; Units: %; Status: F Test: PLATELET COUNT, AUTOMATED; Value: 149; Range: 150-450; Abnormal: Below low normal; Units: k/mm3; Status: F Test: NEUTROPHILS %; Value: 81.5; Range: 36.0-66.0; Abnormal: Above high normal; Units: %; Status: F Test: LYMPH %; Value: 9.4; Range: 24.0-44.0; Abnormal: Below low normal; Units: %; Status: F Test: MONO %; Value: 4.5; Range: 0.0-5.0; Units: %; Status: F Test: EOS %; Value: 3.2; Range: 0.0-3.0; Abnormal: Above high normal; Units: %; Status: F Test: BASO %; Value: 0.4; Range: 0.0-1.0; Units: %; Status: F Test: LARGE UNSTAINED CELL %; Value: 1.0; Range: 0.0-4.0; Units: %; Status: F Test: NEUTROPHILS #; Value: 6.7; Range: 1.8-7.7; Units: K/mm3; Status: F Test: LYMPH #; Value: 0.8; Range: 1.5-6.5; Abnormal: Below low normal; Units: K/mm3; Status: F Test: MONO #; Value: 0.4; Range: 0.0-0.8; Units: K/mm3; Status: F Test: EOS #; Value: 0.3; Range: 0.0-0.50; Units: K/mm3; Status: F Test: BASO #; Value: 0.0; Range: 0.0-0.2; Units: K/mm3; Status: F Test: LARGE UNSTAINED CELL #; Value: 0.1; Range: 0.0-0.4; Units: K/mm3; Status: F Lab Order: Lipase; SPEC'M 11/24/16 22:41 Test: LIPASE; Value: 168; Range: 73-393; Units: U/L; Status: F Lab Order: Liver Profile; SPEC'M 11/24/16 22:41 Test: AST/SGOT; Value: 27; Range: 15-37; Units: U/L; Status: F Test: ALT/SGPT; Value: 33; Range: 12-78; Units: U/L; Status: F Test: ALKALINE PHOSPHATASE; Value: 68; Range: 45-117; Units: U/L; Status: F Test: BILIRUBIN,TOTAL; Value: 0.9; Range: 0.2-1.0; Units: MG/DL; Status: F Test: BILIRUBIN,DIRECT; Value: 0.2; Range: 0.0-0.2; Units: MG/DL; Status: F Test: TOTAL PROTEIN; Value: 6.8; Range: 6.4-8.2; Units: GM/DL; Status: F Test: ALBUMIN; Value: 4.1; Range: 3.2-5.2; Units: GM/DL; Status: F Test: ALBUMIN/GLOBULIN RATIO; Value: 1.52; Range: 1.00-1.93; Status: F Outcome: 11/25 00:23 Discharge ordered by Provider. ck7 00:26 No special radiology studies were completed. dsf 00:26 Discharge Assessment: Patient awake, alert and oriented x 3. No cognitive and/or dsf functional deficits noted. Patient verbalized understanding of disposition instructions. patient administered narcotics - no. The following High Risk Discharge criteria are identified: None. Discharged to home ambulatory. Condition: stable. Discharge instructions given to patient, Instructed on discharge instructions, follow up and referral plans. diet, Demonstrated understanding of instructions, medications, Pt was receptive of discharge instructions/ teaching. Prescriptions given X 2. Property sent home with patient. 00:27 Patient left the ED. dsf Signatures: Dispatcher [employer] EDMS Paul Venegas, RN RN cz Nikky Salmon, Reg Reg gb Mimi Bolivar,RN RN lf1 Dottie Campbell, ASSOCIATE TEACHER ASSOCIATE TEACHER ar3 Marylu Moore,RN RN dsf Corey Jay, RPA-C [id number]-[id number] Bismark Rboin gr2 Sheyla Brian,Guillermo Roman RN,RN RN mb9 Mimi Dove Chart Complete MTDD
== END 2016-11-25 00:27 | disposition home or self-care (01) ==
LOC: M ED 19:03
DX: R11.2 Nausea with vomiting, unspecified (principal); R19.7 Diarrhea, unspecified; F17.210 Nicotine dependence, cigarettes, uncomplicated
CPT/HCPCS: 36415; 80048; 80076; 82150; 83690; 85025; 96361; 96365; 96375; 99284; C9113; J2405